=== PATIENT | male | born 1945 | race Caucasian/White ===

== ENCOUNTER 2024-06-12 08:11 | Outpatient (AMB) | payer OTHER, SELFPAY ==
--- NOTE | 2024-06-12 08:15 | MHC.OFFVIS ---
Vital Signs 06/12/24 08:19 Height 5 ft 5 in Weight 122 lb BMI 20.3 BP 100/74 Blood Pressure Location Rt brachial Position Sitting Intake Visit Reasons: ENP-Parkinson Intake Note: patient presents for parkinsons Allergies No Known Allergies Allergy (Verified 06/12/24 08:19) HPI Comments Details: 78 -yr-old male presents for f/u visit for Parkinson Like Vascular Disease, w/o fluctuations, most likely d/t Stroke. Referred to us by Dr. Young, at the [facility]. Pt denies any significant interval medical history changes.His dizziness is milder now. He is using a walking stick to help with balance intermittent. He is slower and shuffling more. 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 Pt's current PD medication regimen: Sinemt 1 tab QID. Do medication effects last between doses: Some wearing off around time of the next dose- may tremor more. Not bothersome enough to want to increase dose. Dreams alot bedtime is 1030pm, wakes up at 5:30am, gets up 2-3 times for the bathroom. Sleeps well with Melatonin 3mg. Hernia, significant size, obstructs bowels, laying on left side feels better, urinates in a cup, bright yellow to orange. 2 cups Decaf coffee for breakfast- tuna sandwich, supper frozen Staufers, +Ensure 1-2x day 12 g protein. Mood is okay, naps through out the day. [facility] vascular disease[facility] 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 No hearing aids, vision wears reading glasses, had cataract surgery 10 years ago. ADL's: Independent, 1x week, meals on wheels [email or web address], cleans the floors, bathrooms. Swallowing: Occasional fluids/saliva will go down wrong- mild. No h/o PNA. heartburn, 2-3x week, eats small meals. Cough: Occasional- mild, but phlegm white daily, throughout the day. Drooling: At night, he uses a paper towel on pillow at night. Orthostatic lightheadedness: yes, from sitting to standing, looses his balance, holds on to lawrence to ambulate, and uses his cane outdoors, walker in home. Constipation: None- eats raisin, fiber, cheerios, bran, prune juice?- which prevents any constipation, and then loose stools or vomiting. Freezing: None. Stiffness: None. Tremor: Stable, but worse if anxious or Sinemet dose is wearing off, mornings, 1 @7am, 1@ 11:00am, 1@5:00pm. Falls: None Hallucinations: None, just regular dreams. Memory: Memory is good. Sleep: Sleeps well, no cpap,? and Trazodone and Prazosin? (uses for sleep and BP control)? He still has vivid dreams. Other: Had a case of left BPPV- which resolved w/ a course of vestibular tx. Pt. was seen by myself with Dr. Montiel. FORMERLY [facility] Medical History Hx of cardiac pacemaker Unilateral inguinal hernia without obstruction or gangrene Tricuspid valve disease Syncope and collapse Secundum atrial septal defect Other convulsions Unspecified cirrhosis of liver Renal artery stenosis Seizure Parkinson disease Chronic atrial fibrillation Alcoholic cardiomyopathy Review of Systems Const All systems reviewed & are unremarkable except as noted in HPI and below ENT Reports Normal hearing present Neuro Reports Normal hearing present Physical Exam Vital Signs: Last Vital Signs BP 100/74 06/12/24 08:19 BMI result Body Mass Index 20.3 Const General: cooperative, comfortable and no acute distress Nutritional Appearance: thin Orientation/consciousness: patient oriented x3 Limitations: ambulation with cane and ambulation with walker HEENT Teeth and gingiva: edentulous Eyes Pupils: Equal, round and reactive pupils present Neck Neck: Yes full ROM Resp Effort & Inspection: normal respiratory effort and able to speak in complete sentences Neuro Other: Mild decreased Arm Swings LE >R swing, Stooped posture, Gait small steps, mild instability with tandem walk and reduced high stride, off balance mildly. General: patient oriented x3, moves all extremities and deep tendon reflexes 2+ bilaterally Cranial nerves: Yes CN's II-XII intact bilaterally, Yes Facial sensation intact/muscles of mastication intact, Yes Equal, round and reactive pupils present, Yes Normal accommodation reflex present, Yes Bilaterally intact EOM present, Yes Nystagmus not present, Yes Normal facial strength present, Yes Midline tongue present, Yes Normal hearing present, Yes Ability to bilaterally rotate head present and Yes Ability to bilaterally elevate shoulders present Cognition (Neuro): normal cognition Gait exam (Neuro): Steppage gait present (small steps) and Assisted gait required (uses a cane outside, and walker at home.) Gait assisted method: walker and walking stick Motor exam (neuro): 5/5 motor strength present throughout, Tremors during motor activity present (Upper Extremity L>R and extends into the fingers of L. Hand), Abnormal muscle tone present (Frail posture/ thin) and Motor abnormalites present Deep tendon reflexes (DTR's): Right triceps reflex intensity grade: 2+, Left triceps reflex intensity grade: 2+, Rt Biceps (C5, C6): 2+, Left biceps reflex intensity grade: 2+, Right brachioradialis reflex intensity grade: 2+, Left brachioradialis reflex intensity grade: 2+, Right patellar reflex intensity grade: 2+, Left patellar reflex intensity grade: 2+, Right ankle reflex intensity grade: 2+ and Left ankle reflex intensity grade: 2+ Psych Appearance: well kempt Mental Status: mental status grossly normal Speech and movement: Normal speech and movement present and Other speech and movement exam findings present (Psych) (Tremulous voice) Affect: normal affect and Animated affect present Attitude: cooperative Thought process: Normal thought process present Thought content: Normal thought content present Insight: Good insight present (Psych) Judgement: Good judgement present (Psych) Results Reviewed Results Reviewed: [facility] note : Hernia/ Stroke/ Parkinsons/ Seizure Assessment & Plan Assessment & Plan (1) Parkinson disease with neurogenic orthostatic hypotension: Code(s): G90.3 - Multi-system degeneration of the autonomic nervous system Category: Medical (2) Parkinson disease, symptomatic: Code(s): G20.A1 - Parkinson's disease without dyskinesia, without mention of fluctuations Category: Medical (3) Seizure disorder as sequela of cerebrovascular accident: Code(s): I69.398 - Other sequelae of cerebral infarction; G40.909 - Epilepsy, unspecified, not intractable, without status epilepticus Category: Medical (4) REM sleep behavior disorder: Code(s): G47.52 - REM sleep behavior disorder Category: Medical Plan Parkinson like disease due to Vascular symptoms of Stroke Continue CD/LD Regimen TID 7am,11am,5pm, remember to take this medication with a cracker and or a cookie, no meat products within 30 min to 1 hour of taking meds. 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 REM disorder : Sleep has vivid dreams, will evaluate with HST, next time, Melatonin, Prazosin, Trazodone. Diet and Lifestyle management: continue taking 1-2 Ensure daily, drink plenty of water daily, use cane, when changing positions take your time getting out of a chair or bed. F/U in 6 months or sooner as needed. Medications: New carbidopa-levodopa 10-100 mg 1 tab PO TID 270 tabs 0RF carboxymethylcellulose sodium 0.25% 1 drp ophthalmic (eye) QID 15 ea 0RF cyanocobalamin (vitamin B-12) 500 mcg PO DAILY 100 tabs 0RF digoxin 125 mcg PO DAILY 90 tabs 0RF levetiracetam 1,250 mg (2.5 x 500 mg) PO BID 360 tabs 0RF melatonin 3 mg PO BEDTIME PRN 120 caps 0RF sleep metoprolol tartrate 25 mg PO BID 180 tabs 0RF lamotrigine 150 mg PO BID 180 tabs 0RF Coding Level of Care Code New Pt Level 4 (62745) Complex EM visit Add On G2211 Diagnoses Parkinson disease with neurogenic orthostatic hypotension G90.3 Parkinson disease, symptomatic G20.A1 Seizure disorder as sequela of cerebrovascular accident I69.398; G40.909 REM sleep behavior disorder G47.52 Time Spent (min) 30 Comment Baseline Evaluation
[2024-06-12 08:19] VITALS: BP 100/74; BMI 20.3
== END 2024-06-12 16:10 | disposition home or self-care (01) ==
PROVIDERS: Visit Provider Psychiatry & Neurology Neurology
DX: G90.3 Multi-system degeneration of the autonomic nervous system (principal); G20.A1 Parkinson's disease without dyskinesia, without mention of fluctuations; I69.398 Other sequelae of cerebral infarction; G40.909 Epilepsy, unspecified, not intractable, without status epilepticus; G47.52 REM sleep behavior disorder
CPT/HCPCS: 99204; G2211

== ENCOUNTER → 2024-06-12 08:11 | Outpatient (BNVA) | payer OTHER, SELFPAY | PROVIDERS: Visit Provider Nurse Practitioner Family | DX: G20.A1 Parkinson's disease without dyskinesia, without mention of fluctuations (principal); G90.3 Multi-system degeneration of the autonomic nervous system; G47.52 REM sleep behavior disorder; G40.909 Epilepsy, unspecified, not intractable, without status epilepticus; I69.398 Other sequelae of cerebral infarction | CPT/HCPCS: 99202 ==

== ENCOUNTER 2025-01-02 07:43 | Outpatient (AMB) | payer OTHER, SELFPAY ==
--- OUTSIDE RECORDS SUMMARY | 2024-11-16 13:13 | XMS_ITS | Encounter Summary ---
Author Name [facility] Address [address] [place] [id number] Care Team Providers Care Music Professor Name Role Phone DAGOBERTO TRAORE Primary Care Provider Unavailabl e Insurance Providers: All historical and current Section Date Range: From patient's date of to the date document was created. This section includes the names of all active insurance providers for the patient. Insurance Provider Type of Coverage Plan Name Start of Policy Coverage End of Policy Coverage Group Number Member ID Insurance Provider's Telephone Number Policy Murphy's Name Patient's Relationship to Policy Murphy MEDICARE (WNR) MEDICARE () PART B Nov 27, 1998 PART B [id number] Renny GLYNN PATIENT MEDICARE (WNR) MEDICARE () PART B Nov 27, 1998 PART B [id number] [phone] Renny GLYNN PATIENT MEDICARE (WNR) MEDICARE () PART B Nov 27, 1998 PART B [id number] [phone] Renny GLYNN PATIENT MEDICARE (WNR) MEDICARE () PART B Nov 27, 1998 PART B [id number] Renny GLYNN PATIENT MEDICARE (WNR) MEDICARE () PART B Nov 27, 1998 PART B [id number] [phone] Renny GLYNN PATIENT MEDICARE (WNR) MEDICARE () PART A Oct 28, 1997 PART A [id number] Renny GLYNN PATIENT MEDICARE (WNR) MEDICARE () PART B Oct 28, 1997 PART B [id number] [phone] Renny GLYNN PATIENT MEDICARE (WNR) MEDICARE () PART A Oct 28, 1997 PART A [id number] 51A GRETTARenny VANEGASM PATIENT MEDICARE (WNR) MEDICARE () PART B Oct 28, 1997 PART B [id number] 51A GRETTARenny VANEGAS PATIENT MEDICARE (WNR) MEDICARE () PART A Oct 28, 1997 PART A [id number] [phone] Renny GLYNN PATIENT MEDICARE (WNR) MEDICARE () PART B Oct 28, 1997 PART B [id number] Renny GLYNN PATIENT MEDICARE (WNR) MEDICARE () PART A Oct 28, 1997 PART A [id number] 51A [phone] Renny GLYNN PATIENT MEDICARE (WNR) MEDICARE () PART A Oct 28, 1997 PART A [id number] Renny GLYNN PATIENT MEDICARE (WNR) MEDICARE () PART A Oct 28, 1997 PART A [id number] [id number] Renny GLYNN PATIENT MEDICARE (WNR) MEDICARE () PART A Oct 28, 1997 PART A [id number] [phone] Renny GLYNN PATIENT MEDICARE (WNR) MEDICARE () PART A Oct 28, 1997 PART A [id number] [phone] Renny GLYNN PATIENT Selected Encounter This section includes the information on record at [place] for the Encounter. Date/Time Encounter Type Encounter Description Reason Pro vider Source Nov 16, 2024 05:13 PM Outpatient Encounter ADMIN PAT ACTIVTIES (MASNONCT) IHE Encounter Template Text not used by [place] Plan of Treatment: Future Appointments (+ 6 months) and Future Tests (+/- 45 days) The Plan of Treatment section includes future care activities for the patient from all [facility] treatment[facility]ilities. This section includes future appointments and future orders which are active, pending or scheduled. Future Appointments This section includes appointments that were scheduled to occur 6 months from the date of the Encounter, up to a maximum of 20 appointments. The data comes from all [place] treatment facilities. Appointment Date/Time Appointment Type Appointme nt Facility Name Dec 19, 2024 08:30 AM AM[facility]ULATORY - [facility]IC[facility] Jan 02, 2025 08:00 AM AMBULATORY - MEDICINE [facility] Feb 28, 2025 09:30 AM AMBULATORY - MEDICINE [facility] Apr 24, 2025 08:30 AM [facility]ATORY - [facility]IC[facility] [place] Active, Pending, and Scheduled Orders This section includes a listing of several types of active, pending, and scheduled orders, including clinic medications orders, diagnostic test orders, procedure orders and consult orders; where the start date of the order is 45 days before the date of the Encounter or 45 days after the date of theEncounter. The data comes from all [facility] facilities. Test Date/Time Test Type Test Details Facility Name October 16, 2024 12:00 AM Laboratory - Chemi str Order FOLATE BLOOD (SST-GOLD) [facility] Social History: Smoking Status (Most current) and Tobacco Use (All prior to encounter date) This section includes the most current, and the historical, smoking and tobacco- related health factors from the [place] facility where the Encounter took place. Current Smoking Status This section includes the most current smoking, or tobacco-related health factor, from the [place] facility where the Encounter took place. Date/Time Current Smoking Status Comment Facil ity Aug 29, 2023 09:02 AM [place]-TOBACCO QUIT 15 YRS OR MORE [facility] Tobacco Use History This section includes a history of the smoking, or tobacco-related health factors, that were collected on or before the date of the Encounter. The data comes from the [place] facility where the Encounter took place. Date/Time Smoking Status/Tobacco Use Comment F acility Aug 29, 2023 09:02 AM [place]-TOBACCO QUIT 15 YRS OR MORE [facility] Jan 15, 2022 09:17 AM VA-TOBACCO FORMER USER [facility] Jan 15, 2022 09:17 AM [facility] Dec 22, 2020 08:48 AM [facility] Dec 22, 2020 08:48 AM SD-TOBACCO QUIT 15 YRS OR MORE [facility] Advance Directives: All historical and current Section Date Range: From patient's date of to the date document was created. This section includes ALL of a patient's completed or amended [place] Advance and Rescinded Directives. The entries below indicate that a directive exists for the patient, but an actual copy is not included with this document. The data comes from all [place] facilities. Date Advance Directives Provider Source Feb 02, 2006 ADVANCE DIRECTIVE SAVANNAHGRACE Stella REYES [facility] Encounter Notes: All associated encounter notes This section contains the clinical notes associated to the Encounter. Date/Time Encounter Note(s) Provider Source Nov 16, 2024 05:13 PM PHARMACY NOTE: LOCAL TITLE: PHARMACY CUSTOMER CARE MEDICATION RENEWAL STANDARD TITLE: PHARMACY NOTE DATE OF NOTE: NOV 16, 2024@17:13 ENTRY DATE: NOV 16, 2024@17:13:54 AUTHOR: MEENA MANUEL EXP COSIGNER: URGENCY: STATUS: COMPLETED Date: Oct Division: [facility] referred by Pharmacy Call Center for medication renewal: Non-controlled/maintenanc e medication Medications requested: [id number] NUTRITION SUPL ENSURE PLUS/REG LIQUID Defer to primary care provider To be mailed . Please review and renew if appropriate. *This note was generated by [facility]/MD Pharmacy Customer Care. If you have any questions or need assistance, do not contact this author. Please refer all questions to your local, on-site pharmacy departments. /lane/ MEENA MANUEL CPhT TIRE BALANCER, MD/PHARMACY CUSTOMER CARE Signed: 11/16/2024 17:14 Receipt Acknowledged By: 11/20/2024 09:08 /lane/ Luciana Gibbons MD INTERNAL MEDICINE and RHEUMATOLOGY 11/19/2024 07:55 /lane/ BALBIR HORNN,RN-BC REGISTERED NURSE (RN) MEENA MANUEL [facility]
[2025-01-02 08:03] VITALS: BP 104/70; PULSE 65; O2SAT 98
--- NOTE | 2025-01-02 08:03 | A.OFFVIS_ITS ---
Vital Signs 01/02/25 08:03 Height 5 ft 5 in Weight 120 lb BMI 20.0 BP 104/70 Blood Pressure Location Rt brachial Position Sitting Pulse 65 Pulse Source Pulse Oximeter Pulse Oximetry (%) 98 Oxygen Delivery Method Room Air Intake Visit Reasons: 6m follow up per [facility] Chief [facility] Required: No Accompanied by: Self / Same As Patient Allergies No Known Allergies Allergy (Verified 01/02/25 08:09) Medication List - Last Reconciled 01/02/25 by Lizet Montiel MD apixaban 5 mg PO BID carbidopa-levodopa 10-100 mg 1 tab PO .5 times a day carboxymethylcellulose sodium 0.25% 1 drp ophthalmic (eye) QID cyanocobalamin (vitamin B-12) 500 mcg PO DAILY digoxin 125 mcg PO DAILY lamotrigine 150 mg PO BID levetiracetam 1,250 mg (2.5 x 500 mg) PO BID melatonin 3 mg PO BEDTIME PRN metoprolol tartrate 25 mg PO BID omeprazole 20 mg PO DAILY HPI Comments Details: 78 -yr-old male presents for f/u visit for Parkinsonism - vascular. he reports feeling sick after meals and medication. He reports nausea, gI issues, dizziness sometimes. He takes carbidopa/levodopa 10/100 2 1/2 tabs bid . No falls, no seizures, he is walking better with increase in dose. 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 History from last visit- Dreams alot bedtime is 1030pm, wakes up at 5:30am, gets up 2-3 times for the bathroom. Sleeps well with Melatonin 3mg. Hernia, significant size, obstructs bowels, laying on left side feels better, urinates in a cup, bright yellow to orange. 2 cups Decaf coffee for breakfast- tuna sandwich, supper frozen Staufers, +Ensure 1-2x day 12 g protein. Mood is okay, naps through out the day. Parkinson like vascular disease, [facility] 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 No hearing aids, vision wears reading glasses, had cataract surgery 10 years ago. ADL's: Independent, 1x week, meals on wheels [employer], cleans the floors, bathrooms. Swallowing: Occasional fluids/saliva will go down wrong- mild. No h/o PNA. heartburn, 2-3x week, eats small meals. Cough: Occasional- mild, but phlegm white daily, throughout the day. Drooling: At night, he uses a paper towel on pillow at night. Orthostatic lightheadedness: yes, from sitting to standing, looses his balance, holds on to lawrence to ambulate, and uses his cane outdoors, walker in home. Constipation: None- eats raisin, fiber, cheerios, bran, prune juice?- which prevents any constipation, and then loose stools or vomiting. Freezing: None. Stiffness: None. Tremor: Stable, but worse if anxious or Sinemet dose is wearing off, mornings, 1 @7am, 1@ 11:00am, 1@5:00pm. Falls: None Hallucinations: None, just regular dreams. Memory: Memory is good. Sleep: Sleeps well, no cpap,? and Trazodone and Prazosin? (uses for sleep and BP control)? He still has vivid dreams. Other: Had a case of left BPPV- which resolved w/ a course of vestibular tx. Pt. was seen by myself with Dr. Montiel. [facility]LY [facility] Medical History (Updated 01/02/25 @ 08:53 by Lizet Montiel MD) Parkinson's disease (tremor, stiffness, slow motion, unstable posture) Hx of cardiac pacemaker Unilateral inguinal hernia without obstruction or gangrene Tricuspid valve disease Syncope and collapse Secundum atrial septal defect Other convulsions Unspecified cirrhosis of liver Renal artery stenosis Seizure Parkinson disease Chronic atrial fibrillation Alcoholic cardiomyopathy Review of Systems ENT Reports Normal hearing present Neuro Reports Normal hearing present Physical Exam Vital Signs: BMI result Body Mass Index 20.0 Const General: cooperative, comfortable and no acute distress Nutritional Appearance: thin Orientation/consciousness: patient oriented x3 Limitations: ambulation with cane and ambulation with walker HEENT Teeth and gingiva: edentulous Eyes Pupils: Equal, round and reactive pupils present Neck Neck: Yes full ROM Resp Effort & Inspection: normal respiratory effort and able to speak in complete sentences Neuro Other: Mild decreased Arm Swings LE >R swing, Stooped posture, Gait small steps, mild instability with tandem walk and reduced high stride, off balance mildly. General: patient oriented x3, moves all extremities and deep tendon reflexes 2+ bilaterally Cranial nerves: Yes CN's II-XII intact bilaterally, Yes Facial sensation intact/muscles of mastication intact, Yes Equal, round and reactive pupils present, Yes Normal accommodation reflex present, Yes Bilaterally intact EOM present, Yes Nystagmus not present, Yes Normal facial strength present, Yes Midline tongue present, Yes Normal hearing present, Yes Ability to bilaterally rotate head present and Yes Ability to bilaterally elevate shoulders present Cognition (Neuro): normal cognition Gait exam (Neuro): Steppage gait present (small steps) and Assisted gait required (uses a cane outside, and walker at home.) Gait assisted method: walker and walking stick Motor exam (neuro): 5/5 motor strength present throughout, Tremors during motor activity present (Upper Extremity L>R and extends into the fingers of L. Hand), Abnormal muscle tone present (Frail posture/ thin) and Motor abnormalites present Assessment & Plan Assessment & Plan (1) Parkinson's disease (tremor, stiffness, slow motion, unstable posture): Code(s): G20.A1 - Parkinson's disease without dyskinesia, without mention of fluctuations Category: Medical Qualifiers: Dyskinesia presence: without dyskinesia Fluctuating manifestations: without fluctuating manifestations Qualified Code(s): G20.A1 - Parkinson's disease without dyskinesia, without mention of fluctuations (2) Seizure disorder as sequela of cerebrovascular accident: Code(s): I69.398 - Other sequelae of cerebral infarction; G40.909 - Epilepsy, unspecified, not intractable, without status epilepticus Category: Medical (3) REM sleep behavior disorder: Code(s): G47.52 - REM sleep behavior disorder Category: Medical Plan Change CD/LD to 1 tab 5 times a day , remember to take this medication with a cracker and or a cookie, no meat products within 30 min to 1 hour of taking meds. Continue Lamotrigine 150mg PO BID and Levetiracetam 1250mg (2.5mg x 500) PO BID Continue with good BP control : Apixaban, Metoprolol, Digoxin Chronic Afib. Sleep has vivid dreams- Diet and Lifestyle management: continue taking 1-2 Ensure daily, drink plenty of water daily, use cane I will also trial him on prilosec 20 mg qd for GERD. F/U in 6 months or sooner as needed. Medications: New omeprazole 20 mg PO DAILY 90 caps 1RF bisacodyl (Dulcolax (bisacodyl)) 5 mg PO BEDTIME Changed From carbidopa-levodopa 10-100 mg 1 tab PO TID 270 tabs 0RF To carbidopa-levodopa 10-100 mg 1 tab PO .5 times a day 450 tabs 0RF Coding Level of Care Code Est Pt Level 4 (00308) Complex EM visit Add On G2211 Diagnoses Parkinson's disease without dyskinesia or fluctuating manifestations G20.A1 Dyskinesia presence: without dyskinesia Fluctuating manifestations: without fluctuating manifestations Seizure disorder as sequela of cerebrovascular accident I69.398; G40.909 REM sleep behavior disorder G47.52
== END 2025-01-02 09:25 | disposition home or self-care (01) ==
LOC: HO.HSMS 07:44
PROVIDERS: Referring Provider Psychiatry & Neurology Neurology; Visit Provider Psychiatry & Neurology Neurology
DX: G20.A1 Parkinson's disease without dyskinesia, without mention of fluctuations (principal); I69.398 Other sequelae of cerebral infarction; G40.909 Epilepsy, unspecified, not intractable, without status epilepticus; G47.52 REM sleep behavior disorder
CPT/HCPCS: 99214; G2211

== ENCOUNTER → 2025-01-02 07:43 | Outpatient (BNVA) | payer OTHER, SELFPAY | PROVIDERS: Visit Provider Psychiatry & Neurology Neurology | DX: G21.4 Vascular parkinsonism (principal); K40.90 Unilateral inguinal hernia, without obstruction or gangrene, not specified as recurrent; I69.398 Other sequelae of cerebral infarction; G40.909 Epilepsy, unspecified, not intractable, without status epilepticus; G47.52 REM sleep behavior disorder; Z95.0 Presence of cardiac pacemaker | CPT/HCPCS: 99212 ==